=== PATIENT | male | born 1995 | race Two or more races ===

== ENCOUNTER 2016-08-23 21:48 | Emergency (ER) | payer MEDICAID ==
[~2016-08-23] VITALS: Ht 170.2 cm; Wt 120.7 kg
[2016-08-23 22:49] LABS: Basophils # (auto) 0.1 uL; Basophils % (auto) 0.5 % (0.0-2.0); Eosinophils # (auto) 0.1 uL; Eosinophils % (auto) 1.2 % (0.0-7.0); Hematocrit 51.1 % (41.0-53.0); Hemoglobin 16.9 g/dL (13.5-17.5); Lymphocytes # (auto) 3.5 uL; Lymphocytes % (auto) 29.2 % (10.0-50.0); Mean Corpuscular Hemoglobin 29.1 pg (28.0-32.0); Mean Corpuscular Hgb Conc. 33.1 g/dL (32.0-36.0); Mean Corpuscular Volume 87.9 fL (80.0-100.0); Mean Platelet Volume 9.7 fL (7.4-10.4); Monocytes # (auto) 0.9 uL; Monocytes % (auto) 7.3 % (0.0-12.0); Neutrophils # (auto) 7.4 uL; Neutrophils % (auto) 61.8 % (37.0-80.0); Platelet Count (auto) 272 10^3/uL (140-450); Red Cell Distribution Width 13.9 % (11.6-16.0)
[2016-08-23 23:05] LABS: INR 1.09 (0.9-1.15); Partial Thromboplastin Time 27.3 sec (22.64-33.71); Prothrombin Time 11.2 sec (9.37-12.3)
[2016-08-23 23:06] LABS: Albumin 4.2 g/dL (3.4-5.0); BUN/Creatinine Ratio 12.4; Bilirubin, Total 0.7 mg/dL (0.2-1.0); Calcium 9.3 mg/dL (8.5-10.1); Potassium 3.3 mmol/L (3.5-5.1); Total Protein 7.5 g/dL (6.4-8.2)
[2016-08-23 23:12] LABS: B-Type Natriuretic Peptide 9.11 pg/mL (0-100)
[2016-08-23 23:23] LABS: Temperature: 22.5 C (20.0-25.0)
[2016-08-24 08:01] VITALS: BP 105/67
== END 2016-08-24 08:31 | disposition home or self-care (01) ==
LOC: ER 21:50
DX: J20.9 Acute bronchitis, unspecified (principal); J45.909 Unspecified asthma, uncomplicated; F17.210 Nicotine dependence, cigarettes, uncomplicated; F12.10 Cannabis abuse, uncomplicated; R06.02 Shortness of breath
CPT/HCPCS: 36415; 71010; 80053; 83880; 84484; 85025; 85610; 85730; 93005

== ENCOUNTER 2017-10-25 03:59 | Emergency (ER) | payer SELFPAY ==
[~2017-10-25] VITALS: Ht 175.3 cm; Wt 108.9 kg
[2017-10-25 06:56] VITALS: BP 151/84
[2017-10-25] MEDS ORDERED: methylPREDNISolone SOD SUCC 125 MG/2 ML VL IM ONE (07:00)
[2017-10-25] MEDS ORDERED: IPRATROPIUM BROM 0.5 MG/2.5ML INH SOL NEB ONE (07:00)
[2017-10-25] MEDS ORDERED: ALBUTEROL SULF 2.5 MG/0.5ML(0.5%) NEB SOLN NEB ONE (07:00)
[2017-10-25] MEDS ORDERED: LIDOCAINE 1% HCL (LOCAL ANESTH.) INJ 20ML MDV ONE (07:56)
== END 2017-10-25 07:39 | disposition home or self-care (01) ==
LOC: ER 03:59
DX: J45.909 Unspecified asthma, uncomplicated (principal); J02.9 Acute pharyngitis, unspecified; F17.210 Nicotine dependence, cigarettes, uncomplicated; F12.10 Cannabis abuse, uncomplicated
CPT/HCPCS: 71046; 94640; 96372; 99284; J2001; J2930

== ENCOUNTER 2020-03-18 20:52 | Emergency (ER) | payer SELFPAY ==
[~2020-03-18] VITALS: Ht 170.2 cm; Wt 113.4 kg
[2020-03-18 21:30] VITALS: BP 126/79
[2020-03-18] MEDS ORDERED: IPRATROPIUM BROM 0.5 MG/2.5ML INH SOL NEB ONE (22:00)
[2020-03-18] MEDS ORDERED: ALBUTEROL SULF 2.5 MG/0.5ML(0.5%) NEB SOLN NEB ONE (22:00)
[2020-03-18] MEDS ORDERED: methylPREDNISolone SOD SUCC 125 MG/2 ML VL IM ONE (22:00)
== END 2020-03-18 23:38 | disposition home or self-care (01) ==
LOC: ER 20:52
DX: J45.901 Unspecified asthma with (acute) exacerbation (principal); F12.10 Cannabis abuse, uncomplicated; F41.9 Anxiety disorder, unspecified; Z71.51 Drug abuse counseling and surveillance of drug abuser
CPT/HCPCS: 71045; 94640; 99283; J7644

== ENCOUNTER → 2020-03-18 | Emergency (ER) | payer MEDICAID | END | disposition left against medical advice (07) | LOC: ER 21:38 | DX: Z04.3 Encounter for examination and observation following other accident (principal); Z53.21 Procedure and treatment not carried out due to patient leaving prior to being seen by health care provider ==

== ENCOUNTER 2020-07-21 00:10 | Emergency (ER) | payer SELFPAY ==
[~2020-07-21] VITALS: Ht 175.3 cm; Wt 108.9 kg
[2020-07-21] MEDS ORDERED: ALBUTEROL SULF 2.5 MG/0.5ML(0.5%) NEB SOLN NEB ONE (02:45)
[2020-07-21] MEDS ORDERED: IPRATROPIUM BROM 0.5 MG/2.5ML INH SOL NEB ONE (02:45)
[2020-07-21 03:25] VITALS: BP 140/83
== END 2020-07-21 03:43 | disposition home or self-care (01) ==
LOC: ER 00:11
DX: J45.901 Unspecified asthma with (acute) exacerbation (principal); F41.9 Anxiety disorder, unspecified; Z76.0 Encounter for issue of repeat prescription; F17.210 Nicotine dependence, cigarettes, uncomplicated
CPT/HCPCS: 71045

== ENCOUNTER 2022-09-12 13:28 | Emergency (ER) | payer MEDICAID ==
[~2022-09-12] VITALS: Ht 175.3 cm; Wt 117.2 kg
[2022-09-12 15:28] VITALS: BP 132/89
[2022-09-12] MEDS ORDERED: KETOROLAC TROMETH 30 MG/ML 1ML VIAL IM ONE (15:45)
[2022-09-12] MEDS ORDERED: IBUP600T28 PO (16:04)
== END 2022-09-12 16:57 | disposition home or self-care (01) ==
LOC: ER 13:28
DX: S93.401A Sprain of unspecified ligament of right ankle, initial encounter (principal); J45.909 Unspecified asthma, uncomplicated; F17.210 Nicotine dependence, cigarettes, uncomplicated; F12.10 Cannabis abuse, uncomplicated; X58.XXXA Exposure to other specified factors, initial encounter; Y93.89 Activity, other specified; Y92.89 Other specified places as the place of occurrence of the external cause; Y99.8 Other external cause status
CPT/HCPCS: 73610; 96372; 99283; J1885

== ENCOUNTER 2024-12-22 18:20 | Emergency (ER) | payer MEDICAID ==
[~2024-12-22] VITALS: Ht 175.3 cm; Wt 119.2 kg
[~2024-12-22 18:20] MED LIST: IBUP1TAB5 PO
[2024-12-22 18:28] VITALS: BP 146/91; PULSE 86; RESP 16; TEMP 97.2; O2SAT 97
--- NOTE | 2024-12-22 18:45 | ED.PDOC ---
History of Present Illness(SKN HPI Comments PATIENT CAME IN DUE TO REDNESS AND SWELLING TO LEFT LOWER LEG X OVER A WEEK. PT REPORTS GETTING A TATTOO ON HIS LEG AND THAT SAME DAY HAD IT WRAPPED UP FOR 4 HOURS AND AFTERWARDS NOTICIED REDNESS. DENIES NUMBNESS, WEAKNESS, CHEST PAIN, SHORTNESS OF BREATH, HISTORY OF DVTS, FEVER, CHILLS, NAUSEA OR VOMITING Chief Complaint: Wound Check Time Seen by MD: 18:29 Primary Care Provider: NONE History of Present Illness: Nurses Notes, Medications, Allergies Allergies: Coded Allergies: NO KNOWN ALLERGIES (Unverified , 09/18/15) Home Meds Active Scripts Doxycycline Hyclate (Doxycycline Hyclate) 100 Mg Cap, 100 MG PO BID for 7 Days, #14 CAP Prov:MILES VARGAS [employer] 12/22/24 Ibuprofen Micronized (Ibuprofen) 600 Mg Tab, 600 MG PO [id number] PRN, #30 TAB 0 Refills Prov:JOSELINE BAUTISTA [facility] 09/12/22 Information Source: Patient Mode of Arrival: Ambulatory Past Medical History PAST MEDICAL HISTORY: Anxiety, Asthma Surgical History: Denies all surgeries Family History Family History: Reviewed,noncontributory to illness, No family hx of Cancer, No family hx of DM, No family hx of Heart nahid, No family hx of HTN, No family hx ofKidney nahid, No family hx of Liver nahid, No family hx of Lung nahid, No family hx of Stroke Social History Smoker: Cigarettes Alcohol: Occasionally Drugs: Marijuana Lives In: Home Constitutional: denies: chills, diaphoresis, fatigue, fever, malaise, sweats, weakness, others EENTM: denies: blurred vision, double vision, ear bleeding, ear discharge, ear drainage, ear pain, ear ringing, eye pain, eye redness, hearing loss, mouth pain, mouth swelling, nasal discharge, nose bleeding, nose congestion, nose pain, photophobia, tearing, throat pain, throat swelling, voice changes, others Respiratory: denies: cough, hemoptysis, orthopnea, SOB at rest, shortness of breath, SOB with excertion, stridor, wheezing, others Cardiovascular: reports: edema (Left lower leg); denies: chest pain, dizzy spells, diaphoresis, Dyspnea on exertion, irregular heart beat, left arm pain, lightheadedness, palpitations, PND, syncope, others Gastrointestinal: denies: abdomen distended, abdominal pain, blood streaked bowels, constipated, diarrhea, dysphagia, difficulty swallowing, hematemesis, melena, nausea, poor appetite, poor fluid intake, rectal bleeding, rectal pain, vomiting, others Genitourinary: denies: burning, dysuria, flank pain, frequency, hematuria, incontinence, penile discharge, penile sore, pain, testicle pain, testicle swelling, urgency, others Neurological: denies: dizziness, fainting, headache, left sided numbness, left sided weakness, numbness, paresthesia, pre-existing deficit, right sided numbness, right sided weakness, seizure, speech problems, tingling, tremors, weakness, others Musculoskeletal: denies: back pain, gout, joint pain, joint swelling, muscle p ain, muscle stiffness, neck pain, others Integumetry: reports: rash (Leg); denies: bruises, change in color, change in hair/nails, dryness, laceration, lesions, lumps, wounds, others Allergic/Immunocompromised: denies: Difficulty Healing, Frequent Infections, Hives, Itching, others Hematologic/Lymphatic: denies: anemia, blood clots, easy bleeding, easy bruising, swollen glands, others Endocrine: denies: excessive hunger, excessive sweating, excessive thirst, excessive urination, flushing, intolerance to cold, intolerance to heat, unexplained weight gain, unexplained weight loss, others Psychiatric: denies: anxiety, bipolar disorder, depression, hopeless, panic disorder, schizophrenia, sleepless, suicidal, others Physical Exam General Appearance: No Apparent Distress, Normal HEENT: Pharynx Normal Neck: Full Range of Motion, Non-Tender Respiratory: Lungs Clear, No Respiratory Distress, Normal Breath Sounds Cardiovascular: No Murmur, Normal Peripheral Pulses, Regular Rate/Rhythm Breast Exam: Deferred Gastrointestinal: Non Tender, Soft Genitalia: Deferred Pelvic: Deferred Rectal: Deferred Extremities: Normal capillary refill, Normal inspection, Normal range of motion, Non-tender, Other (Trace edema left lower leg over tattoo site ) Musculoskeletal : Apperance: Normal Neurologic: Alert, sweat box attendant II-XII nml as Tested, No Motor Deficits, Normal Affect, Normal Mood, No Sensory Deficits Cerebellar Function: Normal Reflexes: Normal Skin: Dry, Normal Color, Rash (Erythema left lower leg over tattoo site without noted drainage or streaking abscess mild tenderness on palpation pedal pulse positive), Warm Lymphatic: No Adenopathy Was a procedure done? Was a procedure done?: No Differential Diagnosis (INTG) Differential Diagnosis: Cellulitis Differential Diagnosis: Abscess, Impetigo X-Ray, Labs, Meds, VS Vital Signs Date Time Temp Pulse Resp B/P (MAP) Pulse Ox O2 Delivery O2 Flow Rate FiO2 12/22/24 18:28 97.2 86 16 146/91 (109) 97 97.2 X-Ray, Labs, Meds, VS Comment Patient given Rocephin IM and Toradol 60 mg IM reports improvement in pain requesting discharge at this time. He has been patient to stop the penicillin script doxy twice daily x7 days. Advised to take medications as prescribed side effects discussed. Follow up with his PCP, urgent care or back here in the ER in 2 days for re-evaluation of the infection. [id number] Tylenol or Motri n as needed for pain per labeled dosing instructions. ER return precautions given patient indicates understanding agrees with discharge plan of care. Time of 1ST Reevaluation: 18:44 Reevaluation 1ST: Unchanged Time of 2ND Reevaluation: 19:42 Reevaluation 2ND: Improved Patient Education/Counseling: Diagnosis, Treatment, Prognosis, Need For Follow Up Family Education/Counseling: No Family Present Departure 1 Departure Time of Disposition: 19:42 Impression: Primary Impression: Cellulitis Qualified Codes: L03.116 - Cellulitis of left lower limb Disposition: 01 HOME / SELF CARE / HOMELESS Condition: Stable e-Prescriptions Doxycycline Hyclate (Doxycycline Hyclate) 100 Mg Cap 100 MG PO BID for 7 Days, #14 CAP Prov: MILES VARGAS 12/22/24 Discharged With: Self Critical Care Note Critical Care Time?: No Stability Stability form required: MILES Weiner December 22, 2024 18:45
[2024-12-22] MEDS ORDERED: DOXY100C4 PO (19:29)
[2024-12-22] MEDS: LIDOCAINE 1% HCL (LOCAL ANESTH.) INJ 20ML MDV ID ONE (19:43)
[2024-12-22] MEDS: cefTRIAXone SOD 1,000 MG VL IM ONE (19:43)
[2024-12-22] MEDS: KETOROLAC TROMETH 60MG/2ML VIAL IM ONE (19:43)
== END 2024-12-22 20:05 | disposition home or self-care (01) ==
LOC: ER 18:20
DX: L03.116 Cellulitis of left lower limb (principal); F17.210 Nicotine dependence, cigarettes, uncomplicated; J45.909 Unspecified asthma, uncomplicated; F12.90 Cannabis use, unspecified, uncomplicated; F41.9 Anxiety disorder, unspecified
CPT/HCPCS: 96372; 99284; J0696; J1885; J2003